=== PATIENT | male | born 1975 | race Caucasian/White ===

== ENCOUNTER → 2023-07-14 09:44 | Outpatient (REF) | payer OTHER, SELFPAY | LOC: RCS 09:44 | PROVIDERS: ATTENDING PHYSICIAN Internal Medicine Cardiovascular Disease; FAMILY PHYSICIAN Nurse Practitioner Family | DX: I10 Essential (primary) hypertension (principal) | CPT/HCPCS: 93017 ==

== ENCOUNTER → 2023-12-15 06:25 | Day surgery (SDC) | payer OTHER, SELFPAY | LOC: GI 06:25 | PROVIDERS: ATTENDING PHYSICIAN Internal Medicine Gastroenterology | DX: Z12.11 Encounter for screening for malignant neoplasm of colon (principal); D12.3 Benign neoplasm of transverse colon; K63.5 Polyp of colon; K64.0 First degree hemorrhoids; K29.50 Unspecified chronic gastritis without bleeding; K22.81 Esophageal polyp; K31.89 Other diseases of stomach and duodenum; R12 Heartburn | CPT/HCPCS: 45385; 43239; 88305; 88342 ==